=== PATIENT | female | born 1995 | race Two or more races ===

== ENCOUNTER 2017-06-30 20:20 | Emergency (ER) | payer MEDICAID, OTHER ==
[2017-06-30] MEDS ORDERED: HYDROmorphone 1 MG/ML Syringe IVPUSH ONE (20:38)
--- NOTE | 2017-06-30 21:10 | EDM.PDOC ---
ED HPI GENERAL MEDICAL PROBLEM - General Chief Complaint: Lower Extremity Injury/Pain Stated Complaint: left ankle pain Time Seen by Provider: 06/30/17 20:20 Source of Information: Reports: Patient History Limitations: Reports: No Limitations - History of Present Illness INITIAL COMMENTS - FREE TEXT/NARRATIVE: Patient brought by private vehicle for evaluation of left ankle injury. States that she was "horsing around" at home and slipped off the bed, rolling her ankle as she landed on the floor. No numbness/tingling. Unable to ambulate due to discomfort. Pain is localized around lateral ankle. Denies other injuries. Left Ankle Pain Score (Numeric/FACES): 7 - Related Data Allergies Allergy/AdvReac Type Severity Reaction Status Date / Time No Known Allergies Allergy Verified 06/30/17 20:22 Past Medical History - Past Health History Medical/Surgical History: Denies Medical/Surgical History Cardiovascular History: Reports: Other (See Below) Other Cardiovascular History: heart palpatations Genitourinary History: Musculoskeletal History: Psychiatric History: Reports: ADHD, Anxiety, Depression, Other (See Below) Other Psychiatric History: Major Depressive Disorder. Mild HCC Endocrine/Metabolic History: Reports: Obesity/BMI 30+ Oncologic (Cancer) History: - Past Surgical History Female Surgical History: Oncologic Surgical History: Social & Family History - Tobacco Use Smoking Status *Q: Current Every Day Smoker Years of Tobacco use: 2 Packs/Tins Daily: 0.5 Second Hand Smoke Exposure: Yes - Alcohol Use Days Per Week of Alcohol Use: 2 Number of Drinks Per Day: 6 Total Drinks Per Week: 12 - Recreational Drug Use Recreational Drug Use: No Drug Use in Last 12 Months: Yes Recreational Drug Type: Reports: Marijuana/Hashish Recreational Drug Last Use: 6+ caffeinated pops per day including Mountain Dew - Living Situation & Occupation Living situation: Reports: Other, Single Occupation: Employed Review of Systems - Review of Systems Review Of Systems: ROS reveals no pertinent complaints other than HPI. ED EXAM, GENERAL - Physical Exam Exam: See Below Exam Limited By: No Limitations General Appearance: Alert, Anxious, Obese Eye Exam: Bilateral Eye: EOMI, PERRL Head: Atraumatic, Normocephalic Neck: Supple, Full Range of Motion Respiratory/Chest: No Respiratory Distress Peripheral Pulses: 2+: Dorsalis Pedis (L), Dorsalis Pedis (R) Extremities: Other (Moderate swelling noted over lateral aspect of left ankle. Tender with palpation in this area. Medial malleolus, lower leg, and remainder of left foot otherwise non-tender. Able to wiggle toes. Vascularly intact. Unable to perform ROM evaluation with ankle due to discomfort. Noted that at rest, foot pointed somewhat more medially when compared to right foot. ) Neurological: Alert, Oriented Psychiatric: Normal Affect, Normal Mood Skin Exam: Warm, Dry, Intact, Normal Color ED TRAUMA EXTREMITY PROCEDURES - Splinting Left Lower Extremity Splint Site: left ankle Pre-Procedure NV Status: Normal Post-Procedure NV Status: Normal Splint Material: Fiberglass Splint Design: Stirrup Applied & Form Fitted By: Provider Provider Post-Splint Application NV Check: NV Status Normal, Good Position Complications: No Course - Orders/Labs/Meds Orders: Active Orders 24 hr Category Date Time Status Ankle Min 3V Lt [CR] Stat Exams 06/30/17 20:21 Taken Meds: Medications Discontinued Medications Generic Name Dose Route Start Last Admin Trade Name Danny PRN Reason Stop Dose Admin Hydromorphone HCl 0.5 mg 06/30/17 20:38 06/30/17 20:41 Dilaudid IVPUSH 06/30/17 20:39 0.5 mg ONETIME ONE Administration - Radiology Interpretation Free Text/Narrative:: No obvious fracture noted on Xray. Reviewed by Radiology. They agreed no fracture identified. Moderate soft tissue swelling noted. - Re-Assessments/Exams Free Text/Narrative Re-Assessment/Exam: 06/30/17 21:30 Patient to follow up tomorrow at ortho walk-in clinic in [place]. She plans on going to [facility]. Crutches provided. Sent home with take home bottle of T#3. Suspicious for ligament injury. Departure - Departure Time of Disposition: 21:07 Disposition: Home, Self-Care 01 Condition: Good Clinical Impression: Left ankle injury Qualifiers: Encounter type: initial encounter Qualified Code(s): S99.912A - Unspecified injury of left ankle, initial encounter - Discharge Information Instructions: Crutch Use, [id number], Ankle Sprain, [id number], Cast or Splint Care, [id number] Referrals: PCP,Unknown [Primary Care Provider] - Forms: ED Department Discharge Additional Instructions: Take Tylenol #3 for pain. 1-2 tablets every 6 hours. Rest/elevate injured foot for comfort. Avoid weight-bearing. Follow up tomorrow at [facility] in [place] for re- evaluation and treatment plan. They should have access to your xrays within the [facility] system. - My Orders Last 24 Hours: My Active Orders 06/30/17 20:21 Ankle Min 3V Lt [CR] Stat - Assessment/Plan Last 24 Hours: My Active Orders 06/30/17 20:21 Ankle Min 3V Lt [CR] Stat
[2017-06-30] MEDS ORDERED: Sodium Chloride 0.9% 10 ML Syringe FLUSH PRN (21:32)
[2017-07-01 00:55] VITALS: BP 131/75
== END 2017-06-30 21:36 | disposition home or self-care (01) ==
LOC: LL.ED 20:20
DX: S99.912A Unspecified injury of left ankle, initial encounter (principal); F17.210 Nicotine dependence, cigarettes, uncomplicated; W06.XXXA Fall from bed, initial encounter
CPT/HCPCS: 73610; 99283; J1170; 96374

== ENCOUNTER 2018-03-21 11:04 | Emergency (ER) | payer SELFPAY ==
--- NOTE | 2018-03-21 11:19 | EDM.PDOC ---
ED HPI GENERAL MEDICAL PROBLEM - General Chief Complaint: General Stated Complaint: numbness Time Seen by Provider: 03/21/18 11:04 Source of Information: Reports: Patient, EMS, EMS Notes Reviewed - History of Present Illness INITIAL COMMENTS - FREE TEXT/NARRATIVE: Anxiety; patient is a 22-year-old who comes in feeling anxious numbness in her hands and dryness in the mouth she did call 911 and was brought in by ambulance ; reports heavy menstrual cycle Onset: Sudden Duration: Hour(s): Location: Reports: Chest Quality: Reports: Ache, Burning Severity: Mild Improves with: Reports: Rest Worsens with: Reports: None Associated Symptoms: Reports: Other (Hyperventilation) - Related Data Allergies Allergy/AdvReac Type Severity Reaction Status Date / Time No Known Allergies Allergy Verified 03/21/18 11:39 Home Meds: Home Meds . [No Known Home Meds] 07/01/17 [History] Past Medical History - Past Health History Medical/Surgical History: Denies Medical/Surgical History Cardiovascular History: Reports: Other (See Below) Other Cardiovascular History: heart palpatations Genitourinary History: Musculoskeletal History: Psychiatric History: Reports: ADHD, Anxiety, Depression, Other (See Below) Other Psychiatric History: Major Depressive Disorder. Mild HCC Endocrine/Metabolic History: Reports: Obesity/BMI 30+ Oncologic (Cancer) History: - Past Surgical History Female Surgical History: Oncologic Surgical History: Social & Family History - Alcohol Use Alcohol Use History: Yes - Recreational Drug Use Recreational Drug Use Comment: Denies IV drug use - Living Situation & Occupation Living situation: Reports: Other, Single Occupation: Employed ED ROS GENERAL - Review of Systems Review Of Systems: See Below Constitutional: Reports: Weakness, Fatigue HEENT: Reports: No Symptoms Respiratory: Reports: No Symptoms Cardiovascular: Reports: No Symptoms Endocrine: Reports: No Symptoms GI/Abdominal: Reports: No Symptoms : Reports: Irregular Menses (patient reports regular period; but heavier than normal) Musculoskeletal: Reports: No Symptoms Skin: Reports: No Symptoms Neurological: Reports: No Symptoms Psychiatric: Reports: Anxiety Hematologic/Lymphatic: Reports: No Symptoms Immunologic: Reports: No Symptoms ED EXAM, GENERAL - Physical Exam Exam: See Below Exam Limited By: No Limitations General Appearance: Alert, WD/WN, Mild Distress Eye Exam: Bilateral Eye: EOMI, PERRL Ears: Normal External Exam, Normal Canal, Hearing Grossly Normal, Normal TMs Nose: Normal Inspection, Normal Mucosa, No Blood Throat/Mouth: Normal Inspection, Normal Lips, Normal Teeth, Normal Gums, Normal Oropharynx, Normal Voice, No Airway Compromise Head: Atraumatic, Normocephalic Neck: Normal Inspection, Supple, Non-Tender, Full Range of Motion Respiratory/Chest: No Respiratory Distress, Lungs Clear, Normal Breath Sounds, No Accessory Muscle Use, Chest Non-Tender Cardiovascular: Normal Peripheral Pulses, Regular Rate, Rhythm, No Edema, No Gallop, No JVD, No Murmur, No Rub GI/Abdominal: Normal Bowel Sounds, Soft, Non-Tender, No Organomegaly, No Distention, No Abnormal Bruit, No Mass (Female) Exam: Vaginal Bleeding (per patient report) Back Exam: Normal Inspection, Full Range of Motion, NT Extremities: Normal Inspection, Normal Range of Motion, Non-Tender, Normal Capillary Refill, No Pedal Edema Neurological: Alert, Oriented, CN II-XII Intact, Normal Cognition, Normal Gait, Normal Reflexes, No Motor/Sensory Deficits Psychiatric: Anxious Skin Exam: Warm, Dry, Intact, Normal Color, No Rash Lymphatic: No Adenopathy Course - Vital Signs Last Recorded V/S: Last Vital Signs Temp 98.5 F 03/21/18 12:15 Pulse 72 03/21/18 12:15 Resp 18 03/21/18 12:15 BP 132/75 03/21/18 12:15 Pulse Ox 97 03/21/18 12:15 - Orders/Labs/Meds Labs: Laboratory Tests 03/21/18 03/21/18 03/21/18 Range/Units 11:06 11:30 11:30 WBC 11.1 H (4.0-10.2) K/uL RBC 4.20 (3.77-5.09) M/uL Hgb 13.3 (11.7-15.5) g/dL Hct 39.6 (34.0-46.0) % MCV 94.3 (84.0-98.0) fL MCH 31.7 (28.2-33.3) pg MCHC 33.6 (31.7-36.0) g/dL RDW 13.1 (11.2-14.1) % Plt Count 211 (150-350) K/uL Neut % (Auto) 60.7 (45.0-80.0) % Lymph % (Auto) 31.1 (10.0-50.0) % [place] % (Auto) 3.9 (2.0-14.0) % Eos % (Auto) 3.8 (0.0-5.0) % Baso % (Auto) 0.5 (0.0-2.0) % Neut # (Auto) 6.73 (1.40-7.00) K/uL Lymph # (Auto) 3.44 (0.50-3.50) K/uL [place] # (Auto) 0.43 (0.00-1.00) K/uL Eos # (Auto) 0.42 (0.00-0.50) K/uL Baso # (Auto) 0.05 (0.00-0.20) K/uL ABG pH 7.40 (7.35-7.45) ABG pCO2 32 L (35-45) mmHG ABG pO2 70 L* (80-105) mmHG ABG HCO3 19.9 L (22-26) mmol/L ABG Total CO2 21 L (23-27) mmol/L ABG O2 Saturation 94 L (95-98) % ABG Base Excess -5 L (-2-3) mmol/L O2 Delivery Device Room air Sodium 143 (136-145) mmol/L Potassium 3.8 (3.5-5.1) mmol/L Chloride 109 H (98-107) mmol/L Carbon Dioxide 20.7 L (21.0-32.0) mmol/L BUN 8 (7-18) mg/dL Creatinine 0.70 (0.51-1.17) mg/dL Est Cr Clr Drug Dosing TNP Estimated GFR (MDRD) > 60 mL/min Glucose 85 (74-106) mg/dL Calcium 8.8 (8.5-10.1) mg/dL Specimen Type Urine Color Urine Appearance Urine pH (5.0-9.0) Ur Specific [place] (1.005-1.030) Urine Protein (NEGATIVE) mg/dL Urine Glucose (UA) (NEGATIVE) mg/dL Urine Ketones (NEGATIVE) mg/dL Urine Occult Blood (NEGATIVE) Urine Nitrite (NEGATIVE) Urine Bilirubin (NEGATIVE) Urine Urobilinogen (0.2-1.0) E.U./dL Ur Leukocyte Esterase (NEGATIVE) Urine RBC /HPF Urine WBC /HPF Ur Epithelial Cells /LPF Urine Bacteria (NONE TO FEW) /HPF 03/21/18 Range/Units 11:52 WBC (4.0-10.2) K/uL RBC (3.77-5.09) M/uL Hgb (11.7-15.5) g/dL Hct (34.0-46.0) % MCV (84.0-98.0) fL MCH (28.2-33.3) pg MCHC (31.7-36.0) g/dL RDW (11.2-14.1) % Plt Count (150-350) K/uL Neut % (Auto) (45.0-80.0) % Lymph % (Auto) (10.0-50.0) % [place] % (Auto) (2.0-14.0) % Eos % (Auto) (0.0-5.0) % Baso % (Auto) (0.0-2.0) % Neut # (Auto) (1.40-7.00) K/uL Lymph # (Auto) (0.50-3.50) K/uL [place] # (Auto) (0.00-1.00) K/uL Eos # (Auto) (0.00-0.50) K/uL Baso # (Auto) (0.00-0.20) K/uL ABG pH (7.35-7.45) ABG pCO2 (35-45) mmHG ABG pO2 (80-105) mmHG ABG HCO3 (22-26) mmol/L ABG Total CO2 (23-27) mmol/L ABG O2 Saturation (95-98) % ABG Base Excess (-2-3) mmol/L O2 Delivery Device Sodium (136-145) mmol/L Potassium (3.5-5.1) mmol/L Chloride (98-107) mmol/L Carbon Dioxide (21.0-32.0) mmol/L BUN (7-18) mg/dL Creatinine (0.51-1.17) mg/dL Est Cr Clr Drug Dosing Estimated GFR (MDRD) mL/min Glucose (74-106) mg/dL Calcium (8.5-10.1) mg/dL Specimen Type Urinvoid Urine Color Dark yellow Urine Appearance Clear Urine pH 8.0 (5.0-9.0) Ur Specific [place] 1.020 (1.005-1.030) Urine Protein Trace H (NEGATIVE) mg/dL Urine Glucose (UA) Negative (NEGATIVE) mg/dL Urine Ketones Negative (NEGATIVE) mg/dL Urine Occult Blood Moderate H (NEGATIVE) Urine Nitrite Negative (NEGATIVE) Urine Bilirubin Negative (NEGATIVE) Urine Urobilinogen 1.0 (0.2-1.0) E.U./dL Ur Leukocyte Esterase Negative (NEGATIVE) Urine RBC 5-10 H /HPF Urine WBC 0-5 /HPF Ur Epithelial Cells Rare /LPF Urine Bacteria Few (NONE TO FEW) /HPF Meds: Medications Discontinued Medications Generic Name Dose Route Start Last Admin Trade Name Danny PRN Reason Stop Dose Admin Acetaminophen 650 mg 03/21/18 11:58 03/21/18 12:07 Tylenol PO 03/21/18 11:59 650 mg NOW ONE Administration Acetaminophen 650 mg 03/21/18 12:07 Tylenol PO 03/21/18 12:08 NOW ONE Sodium Chloride 1,000 mls @ 999 mls/hr 03/21/18 11:50 03/21/18 11:52 Normal Saline IV 03/21/18 12:50 999 mls/hr .BOLUS ONE Administration Ondansetron HCl 4 mg 03/21/18 12:01 03/21/18 12:07 Zofran IVPUSH 03/21/18 12:02 4 mg ONETIME ONE Administration Departure - Departure Time of Disposition: 12:50 Disposition: Home, Self-Care 01 Condition: Fair Clinical Impression: Hyperventilation, Anxiety - Discharge Information Instructions: Hyperventilation, Ondansetron injection, Dehydration, Adult, Easy -to-Read, Sports Drinks Referrals: Aurelio Leary PA [Primary Care Provider] - Forms: ED Department Discharge - Problem List & Annotations (1) Mixed anxiety and depressive disorder SNOMED Code(s): 262677862 Code(s): F41.8 - OTHER SPECIFIED ANXIETY DISORDERS Status: Chronic Priority: High Annotation/Comment:: Patient has a long history of anxiety depression disorder substance abuse and tobacco she drinks about 3 times a week 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 - Problem List Review Problem List Initiated/Reviewed/Updated: Yes - Assessment/Plan Plan: Patient will be sent home she is to follow with primary for depression and substance abuse we will give her a note to refrain from going to work today
[2018-03-21 11:35] LABS: O2 DELIVERY DEVICE ROOM AIR; PCO2 ARTERIAL 32 mmHG (35-45); PO2 ARTERIAL 70 mmHG (80-105)
[2018-03-21 11:36] LABS: BASE EXCESS ARTERIAL -5 mmol/L (-2-3); BICARBONATE,ARTERIAL 19.9 mmol/L (22-26); O2 SATURATION ARTERIAL 94 % (95-98)
[2018-03-21] MEDS ORDERED: Sodium Chloride 0.9% 1,000 ML IV ONE (11:50)
[2018-03-21 11:57] LABS: CHLORIDE,CL 109 mmol/L (98-107); SODIUM,NA 143 mmol/L (136-145)
[2018-03-21] MEDS ORDERED: Acetaminophen 325 MG Tab PO ONE ×2 (11:58→12:07)
[2018-03-21] MEDS ORDERED: Ondansetron 4 MG/2 ML SDV IVPUSH ONE (12:01)
[2018-03-21 12:16] VITALS: BP 132/75
== END 2018-03-21 12:50 | disposition home or self-care (01) ==
LOC: LL.ED 11:04
DX: F41.9 Anxiety disorder, unspecified (principal); R06.4 Hyperventilation; E66.9 Obesity, unspecified
CPT/HCPCS: 36415; 80048; 81001; 82803; 85025; 96361; 96374; 99284; A9270-GY; J2405; J7030

== ENCOUNTER 2018-09-25 10:39 | Emergency (ER) | payer OTHER ==
[2018-09-25 10:50] VITALS: BP 92/64
[2018-09-25] MEDS ORDERED: Ketorolac 60 MG/2 ML SDV IM ONE (11:30)
--- NOTE | 2018-09-25 11:53 | EDM.PDOC ---
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 pain and was brought to the ER for evaluation Onset: Today Duration: Minutes:, Constant Location: Reports: Upper Extremity, Left Quality: Reports: Ache, Throbbing Severity: Moderate Improves with: Reports: Immobilization, Other Worsens with: Reports: Movement Context: Reports: Trauma Associated Symptoms: Reports: No Other Symptoms 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, Other Medication(s), Splint(s) - Related Data Allergies Allergy/AdvReac Type Severity Reaction Status Date / Time No Known Allergies Allergy Verified 09/25/18 11:18 Home Meds: Home Meds Ketorolac [Toradol] 10 mg PO Q6H PRN #20 tab 09/25/18 [Rx] Past Medical History - Past Health History Medical/Surgical History: Denies Medical/Surgical History Cardiovascular History: Reports: Other (See Below) Other Cardiovascular History: heart palpatations Genitourinary History: Musculoskeletal History: Psychiatric History: Reports: ADHD, Anxiety, Depression, Other (See Below) Other Psychiatric History: Major Depressive Disorder. Mild HCC Endocrine/Metabolic History: Reports: Obesity/BMI 30+ Oncologic (Cancer) History: - Past Surgical History Female Surgical History: Oncologic Surgical History: Social & Family History - Tobacco Use Smoking Status *Q: Current Every Day Smoker Years of Tobacco use: 10 Packs/Tins Daily: 0.5 - Caffeine Use Caffeine Use: Reports: Soda - Living Situation & Occupation Living situation: Reports: Other, Single Occupation: Employed Review of Systems - Review of Systems Review Of Systems: See Below Constitutional: Reports: No Symptoms Eyes: Reports: No Symptoms Ears: Reports: No Symptoms Nose: Reports: No Symptoms Mouth/Throat: Reports: No Symptoms Cardiovascular: Reports: Palpitations GI/Abdominal: Reports: No Symptoms Genitourinary: Reports: No Symptoms Musculoskeletal: Reports: No Symptoms Skin: Reports: No Symptoms Neurological: Reports: No Symptoms Psychiatric: Reports: No Symptoms ED EXAM, GENERAL - Physical Exam Exam: See Below Exam Limited By: No Limitations General Appearance: Alert, WD/WN, No Apparent Distress Ears: Normal External Exam, Normal Canal, Hearing Grossly Normal, Normal TMs Nose: Normal Inspection, Normal Mucosa, No Blood Throat/Mouth: Normal Inspection, Normal Lips, Normal Teeth, Normal Gums, Normal Oropharynx, Normal Voice, No Airway Compromise Head: Atraumatic, Normocephalic Neck: Normal Inspection, Supple, Non-Tender, Full Range of Motion Respiratory/Chest: No Respiratory Distress, Lungs Clear, Normal Breath Sounds, No Accessory Muscle Use, Chest Non-Tender Cardiovascular: Normal Peripheral Pulses, Regular Rate, Rhythm, No Edema, No Gallop, No JVD, No Murmur, No Rub GI/Abdominal: Normal Bowel Sounds, Soft, Non-Tender, No Organomegaly, No Distention, No Abnormal Bruit, No Mass (Female) Exam: Normal External Exam, Normal Speculum Exam, Normal Bimanual Exam Back Exam: Normal Inspection, Full Range of Motion, NT Extremities: Normal Inspection, Normal Capillary Refill, Limited Range of Motion , Other (Left forearm tenderness) Neurological: Alert, Oriented, CN II-XII Intact, Normal Cognition, Normal Gait, Normal Reflexes, No Motor/Sensory Deficits Psychiatric: Normal Affect, Normal Mood Skin Exam: Warm, Dry, Intact, Normal Color, No Rash Lymphatic: No Adenopathy Course - Vital Signs Last Recorded V/S: Last Vital Signs Temp 98.4 F 09/25/18 10:49 Pulse 84 09/25/18 10:49 Resp 20 09/25/18 10:49 BP 92/64 09/25/18 10:49 Pulse Ox 99 09/25/18 10:49 - Orders/Labs/Meds Orders: Active Orders 24 hr Category Date Time Status Forearm 2V Lt [CR] Stat Exams 09/25/18 10:54 Taken Meds: Medications Discontinued Medications Generic Name Dose Route Start Last Admin Trade Name Freq PRN Reason Stop Dose Admin Ketorolac Tromethamine 60 mg 09/25/18 11:30 09/25/18 11:34 Toradol IM 09/25/18 11:31 60 mg ONETIME ONE Administration Departure - Departure Time of Disposition: 11:59 Disposition: Home, Self-Care 01 Clinical Impression: Contusion of left forearm, initial encounter - Discharge Information *PRESCRIPTION DRUG MONITORING PROGRAM REVIEWED*: No Prescriptions: Ketorolac [Toradol] 10 mg PO Q6H PRN #20 tab PRN Reason: Pain Instructions: Ketorolac injection Referrals: Aurelio Leary PA [Primary Care Provider] - Forms: ED Department Discharge Care Plan Goals: Toradol 10mg every 6 hours ordered for pain control as needed and to help keep the swelling down. Restricted at work until 10-07-18 with light duty. Patient needs to follow up with Aurelio Leary, her PCP, around 10-07-18 for follow up x ray. [employer]cat form completed. - My Orders Last 24 Hours: My Active Orders 09/25/18 10:54 Forearm 2V Lt [CR] Stat - Assessment/Plan Last 24 Hours: My Active Orders 09/25/18 10:54 Forearm 2V Lt [CR] Stat
== END 2018-09-25 12:23 | disposition home or self-care (01) ==
LOC: LL.ED 10:39
DX: S50.12XA Contusion of left forearm, initial encounter (principal); F17.200 Nicotine dependence, unspecified, uncomplicated; W20.8XXA Other cause of strike by thrown, projected or falling object, initial encounter; Y93.89 Activity, other specified; Y92.89 Other specified places as the place of occurrence of the external cause
CPT/HCPCS: 73090; 96372; 99283; J1885

== ENCOUNTER 2019-05-30 08:18 | Emergency (ER) | payer OTHER ==
[2019-05-30 08:22] VITALS: BP 113/61; PULSE 79
[2019-05-30] MEDS ORDERED: Ketorolac 60 MG/2 ML SDV IM ONE (09:08)
--- NOTE | 2019-05-30 09:12 | EDM.PDOC ---
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 Twisted left ankle in process. Comes to ER for evaluation (is [employer] employee) of left ankle injury. Denies other injuries. Unable to bear much weight on left foot without pain. left ankle Pain Score (Numeric/FACES): 8 - Related Data Allergies Allergy/AdvReac Type Severity Reaction Status Date / Time No Known Allergies Allergy Verified 05/30/19 08:22 Home Meds: Home Meds . [No Known Home Meds] 05/30/19 [History] Past Medical History - Past Health History Medical/Surgical History: Denies Medical/Surgical History Cardiovascular History: Reports: Other (See Below) Other Cardiovascular History: heart palpatations Genitourinary History: Musculoskeletal History: Reports: Other (See Below) Other Musculoskeletal History: cyst to left wrist Psychiatric History: Reports: ADHD, Anxiety, Depression, Other (See Below) Other Psychiatric History: Major Depressive Disorder. Mild HCC Endocrine/Metabolic History: Reports: Obesity/BMI 30+ Oncologic (Cancer) History: - Past Surgical History Musculoskeletal Surgical History: Reports: Other (See Below) Other Musculoskeletal Surgeries/Procedures:: cyst removal/left wrist Social & Family History - Tobacco Use Smoking Status *Q: Current Every Day Smoker Years of Tobacco use: 7 Packs/Tins Daily: 0.5 Second Hand Smoke Exposure: No - Caffeine Use Caffeine Use: Reports: Soda - Alcohol Use Days Per Week of Alcohol Use: 1 Number of Drinks Per Day: 5 Total Drinks Per Week: 5 - Recreational Drug Use Recreational Drug Use: No - Living Situation & Occupation Living situation: Reports: Other, Single Occupation: Employed Review of Systems - Review of Systems Review Of Systems: ROS reveals no pertinent complaints other than HPI. ED EXAM, GENERAL - Physical Exam Exam: See Below Exam Limited By: No Limitations General Appearance: Alert, No Apparent Distress, Obese Eye Exam: Bilateral Eye: EOMI, PERRL Throat/Mouth: Normal Voice Head: Atraumatic, Normocephalic Neck: Supple Respiratory/Chest: No Respiratory Distress Extremities: No Pedal Edema, Normal Capillary Refill, Other (No swelling or deformity noted of injured ankle. Tender around lateral malleolus on left. Patient able to flex and extend the ankle, as well as invert it. Eversion action is limited and causes pain. Remaining portions of foot/toes/lower leg and medial ankle on affected extremity non-tender. ) Neurological: Alert, Oriented, Normal Cognition Psychiatric: Normal Affect, Normal Mood Skin Exam: Warm, Dry, Intact, Normal Color. No: Ecchymosis, Erythema, Wound/ Incision Course - Vital Signs Last Recorded V/S: Last Vital Signs Temp 36.6 C 05/30/19 08:19 Pulse 79 05/30/19 08:19 Resp 12 05/30/19 08:19 BP 113/61 05/30/19 08:19 Pulse Ox 100 05/30/19 08:19 - Orders/Labs/Meds Orders: Active Orders 24 hr Category Date Time Status Ankle Min 3V Lt [CR] Stat Exams 05/30/19 08:37 Taken Labs: Laboratory Tests 05/30/19 Range/Units 08:35 Urine HCG, Qual Negative Meds: Medications Discontinued Medications Generic Name Dose Route Start Last Admin Trade Name Freq PRN Reason Stop Dose Admin Ketorolac Tromethamine 60 mg 05/30/19 09:08 Toradol IM 05/30/19 09:09 ONETIME ONE - Radiology Interpretation Free Text/Narrative:: No obvious bone fracture noted on xray. One area of fuzziness on talus may represent ligament injury. Pending formal radiology review. - Re-Assessments/Exams Free Text/Narrative Re-Assessment/Exam: 05/30/19 09:18 Ankle susan wrapped and patient given crutches. Precautions reviewed. Will contact patient if Radiology is concerned for fracture. Otherwise she is to follow up Saturday with regular provider or hospital clinic for recheck. Further work restrictions/plans as needed can be determined at that time. Departure - Departure Time of Disposition: 09:09 Disposition: Home, Self-Care 01 Condition: Good Clinical Impression: Left ankle injury Qualifiers: Encounter type: initial encounter Qualified Code(s): S99.912A - Unspecified injury of left ankle, initial encounter - Discharge Information *PRESCRIPTION DRUG MONITORING PROGRAM REVIEWED*: Not Applicable *COPY OF PRESCRIPTION DRUG MONITORING REPORT IN PATIENT SHRUTI: Not Applicable Instructions: Ankle Sprain, [id number] Referrals: Aurelio Leary PA [Primary Care Provider] - Forms: ED Department Discharge Additional Instructions: Avoid walking on injured ankle. Elevate for comfort. OK to apply ice pack for 10-15 min every hour or two. Tylenol or Ibuprofen or Aleve ok for pain. Use crutches to get around. Follow up Saturday for recheck at clinic for further planning and work restrictions if needed. - My Orders Last 24 Hours: My Active Orders 05/30/19 08:37 Ankle Min 3V Lt [CR] Stat - Assessment/Plan Last 24 Hours: My Active Orders 05/30/19 08:37 Ankle Min 3V Lt [CR] Stat
== END 2019-05-30 09:55 | disposition home or self-care (01) ==
LOC: LL.ED 08:18
DX: S99.912A Unspecified injury of left ankle, initial encounter (principal); E66.9 Obesity, unspecified; F17.210 Nicotine dependence, cigarettes, uncomplicated; Z68.33 Body mass index [BMI] 33.0-33.9, adult; W19.XXXA Unspecified fall, initial encounter; Y92.000 Kitchen of unspecified non-institutional (private) residence as the place of occurrence of the external cause
CPT/HCPCS: 73610; 81025; 96372; 99283; J1885

== ENCOUNTER 2020-04-18 01:55 | Emergency (ER) | payer MEDICAID, OTHER ==
[2020-04-18] MEDS ORDERED: Sodium Chloride 0.9% 10 ML Syringe FLUSH PRN (02:16)
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
[2020-04-18] MEDS ORDERED: Ketorolac 60 MG/2 ML SDV IM ONE (02:27)
[2020-04-18] MEDS ORDERED: Ketorolac 30 MG/ML SDV IVPUSH ONE (02:28)
[2020-04-18 02:39] LABS: PTT,PARTIAL THROMBOPLSTIN TIME 24.9 SEC (24.5-32.8)
[2020-04-18 02:42] LABS: CHLORIDE,CL 105 mmol/L (98-107); SODIUM,NA 139 mmol/L (136-145)
[2020-04-18 02:51] VITALS: BP 118/77; PULSE 70
== END 2020-04-18 03:08 | disposition home or self-care (01) ==
LOC: LL.ED 01:55
DX: F41.8 Other specified anxiety disorders (principal); K21.9 Gastro-esophageal reflux disease without esophagitis; R00.0 Tachycardia, unspecified; D72.820 Lymphocytosis (symptomatic); Z71.6 Tobacco abuse counseling; F17.210 Nicotine dependence, cigarettes, uncomplicated; F19.90 Other psychoactive substance use, unspecified, uncomplicated; R94.31 Abnormal electrocardiogram [ECG] [EKG]
CPT/HCPCS: 36415; 71045; 80053; 82550; 82553; 83605; 83735; 83880; 84443; 84484; 84550; 85025; 85379; 85610; 85730; 93005; 96374; 99285; J1885

== ENCOUNTER 2021-04-13 14:13 | Emergency (ER) | payer MEDICAID ==
[2021-04-13 14:58] VITALS: BP 126/89; PULSE 85
[2021-04-13 14:58] LABS: ANION GAP 11.6 meq/L (7-15); CHLORIDE,CL 110 mmol/L (98-107); SODIUM,NA 142 mmol/L (136-145)
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
== END 2021-04-13 15:36 | disposition home or self-care (01) ==
LOC: LL.ED 14:13
DX: J98.8 Other specified respiratory disorders (principal); E66.9 Obesity, unspecified; Z68.30 Body mass index [BMI] 30.0-30.9, adult; Z72.0 Tobacco use; Z20.822 Contact with and (suspected) exposure to COVID-19
CPT/HCPCS: 36415; 71045; 80053; 85025; 87081; 87430; 99283; 99283-25; U0002

== ENCOUNTER 2021-07-27 13:42 | Emergency (ER) | payer MEDICAID ==
[2021-07-27 13:45] VITALS: BP 133/80; PULSE 91
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
[2021-07-27] MEDS: Diphtheria,Pertussis(Acell),Tetanus Vaccine 0.5 ML Syringe IM ONE (14:33)
== END 2021-07-27 15:25 | disposition home or self-care (01) ==
LOC: LL.ED 13:42
DX: S61.012A Laceration without foreign body of left thumb without damage to nail, initial encounter (principal); E66.9 Obesity, unspecified; Z68.30 Body mass index [BMI] 30.0-30.9, adult; Z72.0 Tobacco use; Z23 Encounter for immunization; W26.8XXA Contact with other sharp object(s), not elsewhere classified, initial encounter; Y92.000 Kitchen of unspecified non-institutional (private) residence as the place of occurrence of the external cause
CPT/HCPCS: 12001; 90471; 90715; 99282-25

== ENCOUNTER 2022-12-09 05:34 | Emergency (ER) | payer MEDICAID ==
[2022-12-09 05:54] VITALS: BP 106/85; PULSE 115
[2022-12-09] MEDS: Ketorolac 30 MG/ML SDV IM ONE (06:20)
== END 2022-12-09 07:10 | disposition home or self-care (01) ==
LOC: LL.ED 05:34
DX: S93.402A Sprain of unspecified ligament of left ankle, initial encounter (principal); E66.9 Obesity, unspecified; Z68.38 Body mass index [BMI] 38.0-38.9, adult; Z87.891 Personal history of nicotine dependence; W19.XXXA Unspecified fall, initial encounter; Y92.69 Other specified industrial and construction area as the place of occurrence of the external cause
CPT/HCPCS: 73610-LT; 96372; 99283; J1885

== ENCOUNTER 2023-03-10 03:17 | Emergency (ER) | payer MEDICAID ==
[2023-03-10 03:32] VITALS: BP 108/67; PULSE 115
== END 2023-03-10 04:45 | disposition home or self-care (01) ==
LOC: LL.ED 03:17
DX: S82.002A Unspecified fracture of left patella, initial encounter for closed fracture (principal); Q74.1 Congenital malformation of knee; Z87.891 Personal history of nicotine dependence; Y04.0XXA Assault by unarmed brawl or fight, initial encounter
CPT/HCPCS: 73562-LT; 99283

== ENCOUNTER 2024-08-19 08:01 | Emergency (ER) | payer OTHER ==
[2024-08-19] MEDS ORDERED: Sodium Chloride 0.9% 10 ML Syringe FLUSH PRN (08:29)
[2024-08-19] MEDS: Ondansetron 4 MG Tab.DIS PO PRN (08:33)
[2024-08-19 08:39] LABS: BASOPHILS ABSOLUTE AUTO 0.03 K/uL (0.00-0.20); BASOPHILS PERCENT AUTO 0.4 % (0.0-2.0); EOSINOPHILS ABSOLUTE AUTO 0.18 K/uL (0.00-0.50); EOSINOPHILS PERCENT AUTO 2.5 % (0.0-5.0); HEMATOCRIT 38.7 % (34.0-46.0); LYMPHOCYTES PERCENT AUTO 38.7 % (10.0-50.0); MEAN CORPUSCULAR HEMOGLOBIN 29.7 pg (28.2-33.3); MEAN CORPUSCULAR HGB CONC 33.6 g/dL (31.7-36.0); MEAN CORPUSCULAR VOLUME 88.6 fL (84.0-98.0); MONOCYTES ABSOLUTE AUTO 0.27 K/uL (0.00-1.00); MONOCYTES PERCENT AUTO 3.7 % (2.0-14.0); NEUTROPHILS ABSOLUTE AUTO 3.96 K/uL (1.40-7.00); NEUTROPHILS PERCENT AUTO 54.7 % (45.0-80.0); PLATELET COUNT,PLT 319 K/uL (150-350); RED BLOOD CELL COUNT 4.37 M/uL (3.77-5.09); RED CELL DISTRIBUTION WIDTH 12.2 % (11.2-14.1); WHITE BLOOD CELL COUNT,WBC 7.2 K/uL (4.0-10.2)
[2024-08-19 08:55] LABS: PROTHROMBIN TIME 9.6 SEC (9.0-11.1)
[2024-08-19 09:00] LABS: ALANINE AMINOTRANSFERASE,ALT 23 U/L (12-78); ALBUMIN 3.4 g/dL (3.4-5.0); ALKALINE PHOSPHATASE 85 IU/L (46-116); ANION GAP 10.9 meq/L (7-15); ASPARTATE AMNIOTRANSFERASE,AST 17 U/L (15-37); BILIRUBIN TOTAL 0.7 mg/dL (0.2-1.0); BLOOD UREA NITROGEN,BUN 10 mg/dL (7-18); CARBON DIOXIDE,CO2 24.1 mmol/L (21.0-32.0); CHLORIDE,CL 105 mmol/L (98-107); CREATININE 0.85 mg/dL (0.51-1.17); GLUCOSE RANDOM 88 mg/dL (70-99); POTASSIUM,K 3.8 mmol/L (3.5-5.1); PROTEIN TOTAL,TP 7.4 g/dL (6.4-8.2); SODIUM,NA 140 mmol/L (136-145)
[2024-08-19 09:01] LABS: ESTIMATED GFR 96 mL/min (>=60)
[2024-08-19] MEDS: Acetaminophen/HYDROcodone 325-5 MG Tab PO ONE (09:04)
[2024-08-19 10:47] VITALS: BP 106/71; PULSE 65
== END 2024-08-19 10:21 | disposition home or self-care (01) ==
LOC: LL.ED 08:01
DX: R51.9 Headache, unspecified (principal); M54.6 Pain in thoracic spine; M54.2 Cervicalgia; E66.9 Obesity, unspecified; Z79.899 Other long term (current) drug therapy; V40.5XXA Car driver injured in collision with pedestrian or animal in traffic accident, initial encounter; Y92.410 Unspecified street and highway as the place of occurrence of the external cause
CPT/HCPCS: 36415; 70450; 71045; 72070; 72125; 80053; 85025; 85610; 93005; 93010; 99284; A9270-GY